=== PATIENT | female | born 1955 | race Caucasian/White ===

== ENCOUNTER → 2020-06-28 | Outpatient (CLI) | payer MEDICARE ==
[2020-06-28 09:34] LABS: ABSOLUTE BASOPHILS 0.1 thou/uL (0.0-0.2); ABSOLUTE EOSINOPHILS 0.1 thou/uL (0.0-0.7); ABSOLUTE LYMPHOCYTES 1.9 thou/uL (0.8-5.3); ABSOLUTE MONOCYTES 0.9 thou/uL (0.0-1.2); ABSOLUTE NEUTROPHILS 4.6 thou/uL (1.6-8.1); EOSINOPHILS 1.7 %; HEMATOCRIT 43.6 % (37.0-47.0); HEMOGLOBIN 14.5 gm/dL (12.0-15.0); LYMPHOCYTES 25.1 %; MCH 29.8 pg (26.0-34.0); MCHC 33.2 g/dL (28.0-37.0); MCV 89.7 fL (80.0-100.0); MONOCYTES 12.2 %; MPV 8.3 fl. (7.2-11.1); NUCLEATED RBCS 0 /100WBC; PLATELET COUNT* 273 thou/uL (150-400); RBC 4.86 mil/uL (4.20-5.00); RDW-CV 13.5 % (10.5-14.5); WBC 7.7 thou/uL (4.0-11.0)
[2020-06-28 09:50] LABS: ALBUMIN 3.6 g/dL (3.4-5.0); CREATININE 0.8 mg/dL (0.6-1.3); MAGNESIUM 2.3 mg/dL (1.8-2.4); POTASSIUM 4.5 mmol/L (3.5-5.1); TOTAL BILIRUBIN 0.5 mg/dL (<0.1-1.0); TOTAL PROTEIN 7.5 g/dL (6.4-8.2)
[2020-06-28 10:17] VITALS: BP 163/62
[2020-06-28 11:29] VITALS: BP 153/69
[2020-06-28 12:20] VITALS: BP 157/57
== END ==
LOC: M.LAB 06-17 11:57
PROVIDERS: ATTEND Internal Medicine
DX: I25.10 Atherosclerotic heart disease of native coronary artery without angina pectoris (principal); I10 Essential (primary) hypertension